=== PATIENT | male | born 1930 | race Caucasian/White ===

== ENCOUNTER → 2016-12-03 | Outpatient (CLI) | payer OTHER, BC ==
[~2016-12-03] MED LIST: ASPI81TA28 PO; ATOR-26 PO; CLIN300C10 PO; FENO200C6 PO; FLM4 PO; FRS/40 PO; INSU70IN2 SC; METO50TA16 PO; NTRGSL/4 UT
[2016-12-03 18:29] LABS: URINE APPEARANCE CLEAR (CLEAR); URINE BILIRUBIN NEG (NEG); URINE COLOR YELLOW; URINE NITRITE NEG (NEG); URINE SPECIFIC GRAVITY 1.009 (1.000-1.030); UROBILINOGEN NEG (NEG)
[2016-12-03 18:41] LABS: MANUAL MICROSCOPIC REQUIRED? NO; REVIEW REQ? NO
== END | disposition home or self-care (01) ==
LOC: C.LABMFLN 09:04
PROVIDERS: ATTEND Family Medicine
DX: R35.0 Frequency of micturition (principal)

== ENCOUNTER → 2017-10-30 | Outpatient (CLI) | payer OTHER, BC ==
[2017-10-30 18:12] LABS: ALBUMIN 3.3 gm/dl (3.4-5.0); ALT/SGPT 25 U/L (12-78); BLOOD UREA NITROGEN 33 mg/dl (7-18); CALCIUM 9.3 mg/dl (8.5-10.1); CARBON DIOXIDE 27 mmol/L (21-32); CHOLESTEROL 135 mg/dl (0-200); CREATININE 1.93 mg/dl (0.60-1.40); GLUCOSE 151 mg/dl (70-99); POTASSIUM 4.2 mmol/L (3.5-5.1); SODIUM 137 mmol/L (136-145)
[2017-10-30 18:17] LABS: ALKALINE PHOSPHATASE 48 U/L (45-117); AST/SGOT 33 U/L (15-37); LDL CHOLESTEROL CALCULATED 63 mg/dl; TOTAL PROTEIN 7.1 gm/dl (6.4-8.2)
[2017-10-31 06:53] LABS: HEMOGLOBIN A1C 7.9 % (4.5-5.6)
== END | disposition home or self-care (01) ==
LOC: C.LABMFLN 15:46
PROVIDERS: ATTEND Family Medicine
DX: N18.9 Chronic kidney disease, unspecified (principal); E53.8 Deficiency of other specified B group vitamins; E11.49 Type 2 diabetes mellitus with other diabetic neurological complication; E55.9 Vitamin D deficiency, unspecified